=== PATIENT | male | born 2000 | race Two or more races ===

== ENCOUNTER 2025-05-15 21:44 | Emergency (ER) | payer MEDICAID, SELFPAY ==
[2025-05-15 21:45] VITALS: BMI 23.6
[2025-05-15 22:01] VITALS: BP 169/88; PULSE 90; RESP 20; TEMP 37.6; O2SAT 97
--- NOTE | 2025-05-15 22:22 | PD.EDEAR ---
ED Ear RME/HPI General Chief complaint: Ear Stated complaint: RIGHT EAR SWELING Time Seen by Provider: 05/15/25 22:21 Arrival date/time: 05/15/25 21:44 RME / HPI RME / HPI Narrative: 24-year-old male patient came in for evaluation regarding a swelling to the right pinna. Patient noticed it today, severity moderate, with discomfort. Patient denies any trauma or fall. Patient denies any fever. Denies any other complaints no medications taken prior to arrival. Related Data Previous Rx's ?Medication ?Instructions ?Recorded baclofen 20 mg tablet 20 mg PO TID #20 tabs 12/20/23 naproxen 500 mg tablet 500 mg PO BID PRN pain #20 tabs 12/20/23 amoxicillin 875 mg-potassium 1 tab PO BID #14 tabs 05/15/25 clavulanate 125 mg tablet ibuprofen 800 mg tablet 800 mg PO Q8H PRN pain #30 tabs 05/15/25 Allergies Allergy/AdvReac Type Severity Reaction Status Date / Time No Known Allergies Allergy Verified 12/20/23 09:07 Review of Systems Review of Systems Narrative Review of Systems: Review of system reviewed and within normal limits except mentioned in HPI ED Exam Narrative Physical exam: VITAL SIGNS: Reviewed. GENERAL APPEARANCE: Alert and interactive, follows commands, no acute distress, HEAD AND FACE: Non-traumatic. ENT: PERRL, pink conjunctivitis, eyelid no trauma, Mucous membrane moist.+ Swelling, tenderness, right pinna. No redness noted, fluctuant NECK: Supple, nontender, no nuchal rigidity. RECTAL: Deferred. GENITAL: Deferred. NEUROLOGICAL: Gross motor function intact sensory function intact, Appropriate for age. MUSCULOSKELETAL: low back nontender, full range of motion. EXTREMITIES: Nontender, full range of motion. SKIN: Color pink, dry, no rash, no lacerations, no abrasions, no contusions. LYMPHATICS: Deferred. Course Quality Measures none Orders Category Date Time Status Amoxicillin/Pot Clav 875 [Augmentin 875] Med 05/15/25 22:43 Discontinued 1 tab PO X1 ONE Ibuprofen Tab [Motrin Tab] Med 05/15/25 22:43 Once 800 mg PO X1 ONE Vital Signs Vital signs: Vital Signs Temperature 99.6 F 05/15/25 22:01 Pulse Rate 90 05/15/25 22:01 Respiratory Rate 20 05/15/25 22:01 Blood Pressure 169/88 H 05/15/25 22:01 Pulse Oximetry (%) 97 05/15/25 22:01 Oxygen Delivery Method Room Air 05/15/25 22:01 Ear MDM Narrative MDM Narrative:: 24-year-old male patient came in for evaluation regarding a swelling to the right pinna. Patient noticed it today, severity moderate, with discomfort. Patient denies any trauma or fall. Patient denies any fever. Denies any other complaints no medications taken prior to arrival Right lower lobe was prepped with Betadine. And covered aseptically. Evacuation of hematoma was done by me using blade 11. I used a posterior approach of the Pinna. Patient received lidocaine 0.5 mL to anesthetize the entry area. Significant amount of old looking hematoma noted. Patient earlobe is back to baseline. Compression dressing applied. Patient tolerated procedure well. Patient was given Augmentin and Motrin in the emergency room. I will send the patient home on Augmentin. I advised the patient to continue compression dressing for the next 24 hours Patient data External records reviewed:: None Clinical information provided by:: patient Social determinants that could affect healthcare access:: none Patient has the following chronic illnesses:: None How is presenting disease/condition affected by chronic disease/condition?: uneffected by Evaluation data The following diagnostics were reviewed and interpreted by me:: other (specify) (None) Lab and/or radiology exams considered but not ordered:: None Interpretation Summary: None Medications / Prescriptions Medications or Prescriptions considered but not ordered:: None Medication administrations:: Medication Administration History Ibuprofen (Ibuprofen Tab 400 Mg Tablet) 800 mg PO X1 ONE Stop: 05/15/25 22:44 Discontinued Medications Amoxicillin/Clavulanate Potassium (Amoxicillin/Pot Clav 875 Tablet) 1 tab PO X1 ONE Stop: 05/15/25 22:44 Augmentin, Motrin Consultations Consultation(s) initiated? (list below): No Diagnosis Ear Differential Diagnosis: other (Nontraumatic hematoma of the right pinna, cauliflower ear) Most likely diagnosis given after review of the tests above:: Nontraumatic hematoma of the right pinna Admission Indicated Admission indicated?: not indicated Admission Request Was there a request for admission?: No Disposition Plan Disposition Plan: Discharge Discharge Attestation Discharge Attestation: The patient was given an opportunity to ask questions and understood the discharge instructions. Discharge instructions specifically effects, indications for sooner follow up or return to the emergency department, and the expected course of current diagnosis. Patient condition: Stable Discharge Plan Plan Patient Disposition: HOME (Self Care) Discharge Disposition comment: Stable Prescriptions/Referrals Prescriptions/Med Rec: New amoxicillin-pot clavulanate 875-125 mg tablet 1 tab PO BID Qty: 14 0RF ibuprofen 800 mg tablet 800 mg PO Q8H PRN (Reason: pain) Qty: 30 0RF No Action baclofen 20 mg tablet 20 mg PO TID Qty: 20 0RF naproxen 500 mg tablet 500 mg PO BID PRN (Reason: pain) Qty: 20 0RF Problem List Clinical Impression: Nontraumatic hematoma of right pinna Patient/Caregiver Discharge Instructions Discharge Activity: activity as tolerated Education Materials: ED Hematoma Additional Instructions: Thank you for the opportunity for serving you today. You are stable for discharged . You are advised to: Follow-up with your PCP in 1 to 2 days Return to ED for worsening of symptoms Increase oral fluids Take medication as prescribed Continue pressure dressing as needed for the next 24 hours Print Language: Somali Stand Alone Forms: Carlene Award Info., Patient Portal Info Letter PA/KARAN Supervising Physician EDMUND/KARAN Supervising Physician: Md Margarito
[2025-05-15] MEDS: AMOXICILLIN/POT CLAV 875 TABLET 1 TAB PO (23:10)
[2025-05-15] MEDS: IBUPROFEN TAB 400 MG TABLET 800 MG PO (23:10)
[2025-05-15 23:12] VITALS: BP 128/78; PULSE 80; RESP 18; TEMP 36.8; O2SAT 99
== END 2025-05-15 23:12 | disposition home or self-care (01) ==
LOC: SERX 23:17
PROVIDERS: Emergency Provider Emergency Medicine
DX: H61.121 Hematoma of pinna, right ear (principal)
CPT/HCPCS: 99283; A9270

== ENCOUNTER 2025-05-19 20:24 | Emergency (ER) | payer MEDICAID, SELFPAY ==
[2025-05-19 20:25] VITALS: BMI 23.6
[2025-05-19 20:50] VITALS: BP 158/78; PULSE 104; RESP 18; TEMP 37.2; O2SAT 96
--- NOTE | 2025-05-19 20:58 | EDNOTE_ITS ---
ED Ear RME/HPI General Chief complaint: Ear Stated complaint: DISCOMFORT TO RIGHT EAR Time Seen by Provider: 05/19/25 20:56 Arrival date/time: 05/19/25 20:24 24M with no significant PMH presents to ED with 1 week of R upper earlobe swelling. Patient was here several days ago, where it was drained with only blood coming out. Patient denies trauma. Patient was discharged with ABX and has been taking them. Patient states after draining last time, it swelled up again, but not as worse as before. Limitations: no limitations Related Data Previous Rx's ?Medication ?Instructions ?Recorded baclofen 20 mg tablet 20 mg PO TID #20 tabs naproxen 500 mg tablet 500 mg PO BID PRN pain #20 t abs 12/20/23 amoxicillin 875 mg-potassium 1 tab PO BID #14 tabs 08/27 clavulanate 125 mg tablet ibuprofen 800 mg tablet 800 mg PO Q8H PRN pain #30 t abs 05/15/25 Allergies Allergy/AdvReac Type Severity Reaction Status Date / Time No Known Allergies Allergy Verified 12/20/23 09:07 Review of Systems Review of Systems Systems Reviewed: All systems reviewed, normal except as documented ENT Ears, Nose, Mouth, and Throat: Reports as per HPI and Reports other (R ear swelling) Past Medical History Social History SMOKING STATUS: Never smoker ED Exam General Limitations: Present no limitations General appearance: Present alert and in no apparent distress Head Head exam: Present atraumatic Expanded ENT Exam External ear exam: Present auricular hematoma (R upper ear lobe) Neck Neck exam: Present normal inspection, full ROM and trachea midline Chest Chest inspection: Present normal inspection and symmetric chest wall rise Extremities Exam Extremities exam: Present normal inspection and full ROM Neurological Exam Neurological exam: Present alert and oriented X3 Psychiatric Psychiatric exam: Present normal affect and normal mood Skin Skin exam: Present warm, dry, intact and normal color Course Quality Measures none Vital Signs Vital signs: Vital Signs Temperature 98.9 F 05/19/25 20:50 Pulse Rate 104 H 05/19/25 20:50 Respiratory Rate 18 05/19/25 20:50 Blood Pressure 158/78 H 05/19/25 20:50 Pulse Oximetry (%) 96 05/19/25 20:50 Oxygen Delivery Method Room Air 05/19/25 20:50 O2 at 96% on RA and WNLs Ear MDM Narrative MDM Narrative:: 24M with no significant PMH presents to ED with 1 week of R upper earlobe swelling. Patient was here several days ago, where it was drained with only blood coming out. Patient denies trauma. Patient was discharged with ABX and has been taking them. Patient states after draining last time, it swelled up again, but not as worse as before. Physical exam reveals R upper ear lobe redness and swelling, but no tenderness. Patient is afebrile, calm, and alert. Outpatient referral given. Patient data External records reviewed:: [facility] previous records Clinical information provided by:: patient Social determinants that could affect healthcare access:: none Patient has the following chronic illnesses:: none How is presenting disease/condition affected by chronic disease/condition?: no chronic disease Evaluation data The following diagnostics were reviewed and interpreted by me:: other (specify) (none) Lab and/or radiology exams considered but not ordered:: not ordered Interpretation Summary: n/a Medications / Prescriptions Medications or Prescriptions considered but not ordered:: not ordered Medication administrations:: n/a Consultations Consultation(s) initiated? (list below): No Diagnosis Ear Differential Diagnosis: otitis externa, foreign body in ear, ruptured TM, cerumen impaction and other (hematoma R pinna) Most likely diagnosis given after review of the tests above:: hematoma R pinna Admission Indicated Admission indicated?: not indicated Admission Request Was there a request for admission?: No Disposition Plan Disposition Plan: Discharge Discharge Attestation Discharge Attestation: The patient and all family members were given an opportunity to ask questions and understood the discharge instructions. Discharge instructions specifically effects, indications for sooner follow up or return to the emergency department, and the expected course of current diagnosis. Patient condition: Stable Discharge Plan Plan Patient Disposition: HOME (Self Care) Discharge Disposition comment: Stable Prescriptions/Referrals Prescriptions/Med Rec: No Action baclofen 20 mg tablet 20 mg PO TID Qty: 20 0RF naproxen 500 mg tablet 500 mg PO BID PRN (Reason: pain) Qty: 20 0RF amoxicillin-pot clavulanate 875-125 mg tablet 1 tab PO BID Qty: 14 0RF ibuprofen 800 mg tablet 800 mg PO Q8H PRN (Reason: pain) Qty: 30 0RF Referrals: Kenova,Parish E, DO [Physician, Ear, Nose, Throat] - In 1 week Referral Note: Call Dr. Amin's office in AM. Clinical Impression: Nontraumatic hematoma of right pinna Problem List Clinical Impression: Nontraumatic hematoma of right pinna Patient/Caregiver Discharge Instructions Education Materials: ED Hematoma Additional Instructions: Please follow-up with PCP within 24-48 hours and return immediately if symptoms worsen. Can reach out to Dr. Amin for additional evaluation. May need referral from PCP first. Print Language: Mongolian Stand Alone Forms: Patient Portal Info Letter PA/AERONAUTICAL PROJECT ENGINEER Supervising Physician PA/AERONAUTICAL PROJECT ENGINEER Supervising Physician: Dr. Hagan
== END 2025-05-19 21:05 | disposition home or self-care (01) ==
LOC: SERX 21:07
PROVIDERS: Emergency Provider Emergency Medicine
DX: H61.121 Hematoma of pinna, right ear (principal)
CPT/HCPCS: 99281